=== PATIENT | male | born 1935 | race Caucasian/White ===

== ENCOUNTER 2017-06-09 18:13 | Emergency (ER) | payer MEDICARE ==
[2017-06-09 18:26] VITALS: BP 132/64
[2017-06-09] MEDS ORDERED: Tetan/Diph/Pertus SYR(Tdap)* 0.5 ML SYR(BOOSTRIX) use SYR IM ONE (19:06)
--- NOTE | 2017-06-09 20:20 | RAD ---
Indication: Left index finger injury. 3 views of the left third digit demonstrates soft tissue swelling at the proximal interphalangeal joint. Degenerative changes of the proximal interphalangeal joint is noted. No obvious defect is noted. IMPRESSION: Soft tissue swelling at the proximal interphalangeal joint of the third digit with degenerative changes. No evidence of traumatic defect is noted.
[2017-06-09] MEDS ORDERED: Cephalexin CAP* 500 MG ONE (20:36)
[2017-06-09] MEDS ORDERED: Cephalexin CAP* 500 MG PO ONE (20:38)
--- NOTE | 2017-06-10 08:57 | ED ---
Bj Vizcaino Tiffany, scribed for Oneida Sarmiento MD on 06/09/17 at 1948 . Laceration/Wound HPI - HPI Summary HPI Summary: The patient is an 82 year old male presenting to [facility] accompanied by complains of middle left finger laceration from [employer] at 1715 today. The patient rates the pain 2/10 in severity. Symptoms aggravated by nothing. Symptoms alleviated by nothing. States that finger was "mangled anyway before this" when asked about baseline. Takes 81 mg aspirin. Not up to date on tetanus. - History of Current Complaint Stated Complaint: FINGER LAC Time Seen by Provider: 06/09/17 19:05 Hx Obtained From: Patient Mechanism of Injury: Other - [employer], was cutting down a tree in his yard Onset/Duration: Sudden Onset, Lasting Hours - At 1715 today, Still Present Aggravating: Nothing Alleviating: Nothing Timing: Constant Onset Severity: Mild Current Severity: Mild Pain Intensity: 2 Pain Scale Used: 0-10 Numeric Associated Signs & Symptoms: Negative Related Hx: Anticoagulat Use - ASA 81mg daily, Dominant Hand (Right) - Allergy/Home Medications Allergies/Adverse Reactions: Allergies Allergy/AdvReac Type Severity Reaction Status Date / Time No Known Allergies Allergy Verified 06/09/17 18:23 PMH/Surg Hx/FS Hx/Imm Hx Previously Healthy: No Cardiovascular History: Reports: Hx Atrial Fibrillation, Hx Hypercholesterolemia , Hx Hypertension Sensory History: Denies: Hx Deafness EENT History: Denies: Hx Deafness Psychiatric History: Denies: Hx Panic Disorder - Surgical History Surgery Procedure, Year, and Place: NONE Infectious Disease History: No Infectious Disease History: Denies: Traveled Outside the [place] in Last 30 Days - Family History Known Family History: Positive: Cardiac Disease - Father, Other - Mother had cancer; Father had Alzheimer's - Social History Occupation: Retired Lives: With Family Alcohol Use: None Hx Substance Use: No Substance Use Type: Reports: None Hx Tobacco Use: No Smoking Status (MU): Never Smoked Tobacco Review of Systems Negative: Fever Cardiovascular: Negative Respiratory: Negative Gastrointestinal: Negative Musculoskeletal: Other - laceration left middle finger Positive: Other - Middle left finger laceration Neurological: Negative Psychological: Normal All Other Systems Reviewed And Are Negative: Yes Physical Exam - Summary Physical Exam Summary: Appearance: well-appearing, minimal pain distress, Well-nourished Head: Normal Head/Face inspection Eyes: Conjunctiva clear ENT: Normal inspection Neck: Supple, no nodes, no JVD. SKIN: 3-cm laceration on middle finger of left hand,dorsum from MCP joint to PIP joint. FROM. Sensation intact. Bleeding is controlled. Respiratory: Lungs clear, Normal breath sounds, no respiratory distress Cardio: RRR, No murmur, pulses normal, brisk capillary refill Abdomen: soft, nontender Bowel sounds: present Musculoskeletal: Strength Intact/ ROM intact. No calf tenderness. No edema. 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 Psychological: Normal Neuro: Alert, muscle tone normal, no focal deficit Triage Information Reviewed: Yes Vital Signs On Initial Exam: Initial Vitals Temp Pulse Resp BP Pulse Ox 97.4 F 70 14 132/64 97 06/09/17 18:23 06/09/17 18:23 06/09/17 18:23 06/09/17 18:23 06/09/17 18:23 Vital Signs Reviewed: Yes Procedures - Laceration/Wound Repair 1 Location: Other - Left middle finger, dorsum, between MCP and over PIP Description: Irregular Anesthesia: Digital - block, 1.0% - lido Length, Depth and Shape: 3-cm x 3-mm x 2-mm Betadine Prep?: No - chlorhexadine Irrigated w/ Saline (ccs): 500 - Normal saline Laceration/Wound Explored: clean, no foreign body removed, Other - No tendon visualized Closure: Single Layer Debridement: none Suture Type: Nylon - 4-0 Number of Sutures: 7 Layer Closure?: No Sterile Dressing Applied?: Yes Diagnostics - Vital Signs Vital Signs Temp Pulse Resp BP Pulse Ox 06/09/17 18:23 97.4 F 70 14 132/64 97 - Laboratory Lab Statement: Any lab studies that have been ordered have been reviewed, and results considered in the medical decision making process. - Radiology Finger Xray Radiology Interpretation Completed By: Radiologist - Soft tissue swelling at the proximal interphalangeal joint of the third digit with degenerative changes. No evidence of traumatic defect is noted. ED physician has reviewed this report. Laceration Repair Course/Dx - Course Course Of Treatment: High blood pressure noted. Patients medications reviewed this visit. Finger xray showed no evidence of fracture. Laceration repaired with 7 sutures, closed with single layer on left middle finger, dorsum, between MCP and over PIP. Administered tetnaus shot. Patient discharged with prescription for Keflex. Agreeable to discharge. - Differential Dx Differental Diagnoses: Foreign Body, Fracture, Joint Infection, Laceration - Clinical Impression Provider Diagnoses: Tetanus toxoid vaccination administered at current visit, Laceration of finger of left hand Discharge - Sign-Out/Discharge Documenting (check all that apply): Discharge/Admit/Transfer - home - Discharge Plan Condition: Stable Disposition: HOME Prescriptions: Cephalexin CAP* [Keflex CAP*] 500 mg PO QID #40 cap Patient Education Materials: Finger Laceration (ED) Referrals: Breonna Raymundo MD [Primary Care Provider] - 3 Days (06/12/17 for wound check ) Additional Instructions: Keep your sutures clean and dry. Leave the bandage in place until you have it checked on Monday06/12/17. After that change the dressing daily and use a small amount of triple antibiotic ointment. We have given you your first dose of keflex tonight and want you to take that four times a day for 10 days to prevent infection from getting to the bone. Have the sutures removed by your doctor or urgent care in 10-14 days. Return to the ER if you have any new or worsening symptoms. You were given a Tdap tetanus booster tonight which is good for 10 years. - Billing Disposition and Condition Condition: STABLE Disposition: HOME The documentation as recorded by the Bj gilliam Tiffany accurately reflects the service I personally performed and the decisions made by me, Oneida Sarmiento MD.
== END 2017-06-09 20:55 | disposition home or self-care (01) ==
LOC: ED 18:13
DX: S61.213A Laceration without foreign body of left middle finger without damage to nail, initial encounter (principal); W45.8XXA Other foreign body or object entering through skin, initial encounter; Y92.9 Unspecified place or not applicable; Z79.82 Long term (current) use of aspirin
CPT/HCPCS: 12002; 73140; 90715; 99282; A9270-GY

== ENCOUNTER 2018-07-25 13:29 | Day surgery (SDC) | payer MEDICARE ==
[~2018-07-25 13:29] MED LIST: Acetaminophen TAB* 325 MG PO PRN; Buffered Lidocaine 1% SYRIN* 1 ML/SYRINGE INTRADERM ONE; Cyclopentolate 1% OPTH.SOL* 2 ML BTL ONE; Ketorolac 0.5% OPHTH (NF) 0.5 % 5 ML BTL ONE; Lidocaine 1%* 5 ML VIAL ONE; Lidocaine 2% EPI 1:200000 MPF*10-20 ML VIAL ONE; Neomycin/Polymy/Dex OPTH.SUSP* MAXITROL 0.1% 5 ML ONE; Phenylephrine OPHTH SOL 2.5%* 2 ML ONE; Povidone Iodine 5% OPTH* 30 ML BTL ONE; Proparacaine 0.5% OPHTH.SOL* 15 ML BTL ONE; acetaZOLAMIDE TAB* 250 MG ONE
[2018-07-25] MEDS ORDERED: Midazolam* 1 MG/ML 2 ML VIAL (2 MG) ONE (15:27)
--- NOTE | 2018-07-25 16:41 | OP ---
DATE OF OPERATION: 07/25/18 [facility] DATE OF : 37 SURGEON: Alexandro Mary M.D. PREOPERATIVE DIAGNOSIS: Cataract, right eye. POSTOPERATIVE DIAGNOSIS: Cataract, right eye. OPERATIVE PROCEDURE: Extracapsular cataract extraction with intraocular lens implant, right eye. DESCRIPTION OF PROCEDURE: The patient was brought to the operating room after being given 1/2% Alcaine with epinephrine drops in the preoperative area. The eye was prepped and draped in the usual sterile fashion. Sterile drape and eyelid speculum were placed. Again, topical 1/2% Alcaine with epinephrine was given. A paracentesis incision was made at the 9 o'clock position with the No.75 blade. Clear cornea incision 2.2 x 2.2-mm was created at the 12 o'clock position starting at the anterior limbus using the 2.2-mm keratome. The anterior chamber was irrigated with 0.4 mL of 1% non-preservative intracameral lidocaine and filled with DisCoVisc. A capsulorrhexis was completed using the cystotome and the Utrata forceps. Hydrodissection was performed with balanced salt solution. The lens nucleus was removed with the Phacoemulsification handpiece without incident. Cortex was removed with the irrigation-aspiration handpiece. The capsular bag was re-inflated using DisCoVisc and an [id number] implant was inserted with the shooter. The irrigation-aspiration handpiece was used to remove all residual DisCoVisc. The eye was refilled with balanced salt solution and the wound checked and found to be watertight. Topical Maxitrol drops were given. [id number]/[facility] #: [id number] MTDD
[2018-07-25 16:47] VITALS: BP 121/73
== END 2018-07-25 16:40 | disposition home or self-care (01) ==
LOC: OREAST 13:29
PROVIDERS: ATTEND Specialist
DX: H25.811 Combined forms of age-related cataract, right eye (principal); H04.123 Dry eye syndrome of bilateral lacrimal glands; I48.91 Unspecified atrial fibrillation; I10 Essential (primary) hypertension; Z79.82 Long term (current) use of aspirin; Z79.01 Long term (current) use of anticoagulants
CPT/HCPCS: A9270-GY; J2250; V2632

== ENCOUNTER 2018-08-01 08:39 | Day surgery (SDC) | payer MEDICARE ==
[~2018-08-01 08:39] MED LIST changes: -Lidocaine 1%* 5 ML VIAL ONE; +Lidocaine 1%** 5 ML VIAL ONE
[2018-08-01] MEDS ORDERED: Midazolam* 1 MG/ML 2 ML VIAL (2 MG) ONE (10:52)
[2018-08-01 11:58] VITALS: BP 119/67
--- NOTE | 2018-08-01 12:02 | OP ---
OPERATIVE NOTE: DATE OF OPERATION: 08/01/18 - [facility] DATE OF : 37 SURGEON: Alexandro Mary M.D. PREOPERATIVE DIAGNOSIS: Cataract, left eye. POSTOPERATIVE DIAGNOSIS: Cataract, left eye. OPERATIVE PROCEDURE: Extracapsular cataract extraction with IOL, left eye. PROCEDURE: The patient was brought to the operating room after being given 1/2 % Alcaine with epinephrine drops in the preoperative area. The eye was prepped and draped in the usual sterile fashion. Sterile drape and eyelid speculum were placed. Again, topical 1/2% Alcaine with epinephrine was given. A paracentesis incision was made at the 3 o'clock position with the No.75 blade. Clear cornea incision 2.2 x 2.2-mm was created at the 6 o'clock position starting at the anterior limbus using the 2.2-mm keratome. The anterior chamber was irrigated with 0.4 mL of 1% non-preservative intracameral lidocaine and filled with DisCoVisc. A capsulorrhexis was completed using the cystotome and the Utrata forceps. Hydrodissection was performed with balanced salt solution. The lens nucleus was removed with the Phacoemulsification handpiece without incident. Cortex was removed with the irrigation-aspiration handpiece. The capsular bag was re-inflated using DisCoVisc and an [id number] implant was inserted with the shooter. The irrigation-aspiration handpiece was used to remove all residual DisCoVisc. The eye was refilled with balanced salt solution and the wound checked and found to be watertight. Topical Maxitrol drops were given. [id number]/[facility] #: [id number] [facility]
== END 2018-08-01 11:45 | disposition home or self-care (01) ==
LOC: OREAST 08:39
PROVIDERS: ATTEND Specialist
DX: H25.812 Combined forms of age-related cataract, left eye (principal); H04.123 Dry eye syndrome of bilateral lacrimal glands; I48.91 Unspecified atrial fibrillation; I10 Essential (primary) hypertension
CPT/HCPCS: A9270-GY; J2250; V2632

== ENCOUNTER 2024-03-05 11:02 | Observation (INO) ==
[2024-03-05 11:40] LABS: INR 1.14 (0.85-1.14)
[2024-03-05 11:41] LABS: Hematocrit 42.1 % (38-53); Hemoglobin 14.4 g/dL (13.2-16.3); Mean Corpuscular Hemoglobin 32.9 pg (27-33); Mean Corpuscular Hgb Conc 34.1 g/dL (31-36); Mean Corpuscular Volume 96.5 fL (80-97); Red Blood Count 4.36 10^6/uL (4.06-5.63); Red Cell Distribution Width 14.5 % (12-17); White Blood Count 5.3 10^3/uL (3.6-10.2)
[2024-03-05 12:01] LABS: ABS Lymphocytes 0.8 10^3/uL (1.0-4.8); ABS Monocytes 0.7 10^3/uL (0.0-1.1); ABS Neutrophils 3.7 10^3/uL (1.5-7.6); Eosinophil % 0.6 %; Lymphocyte % 16.1 %; Nucleated Red Blood Cells % 0.1 %/100WBC (0.0-0.8); Platelet Count 132 10^3/uL (150-450)
[2024-03-05 12:26] LABS: Albumin 4.4 g/dL (3.5-5.7); Albumin/Globulin Ratio 1.3 (1-3); Calcium 9.7 mg/dL (8.6-10.3); Creatinine, Serum 0.95 mg/dL (0.67-1.17); Globulin 3.5 g/dL (2-4); Potassium 3.8 mmol/L (3.5-5.0); Total Bilirubin 0.5 mg/dL (0.2-1.0); Total Protein 7.9 g/dL (6.4-8.9); eGFR CKD-EPI 77.5 (>60)
[2024-03-05 13:03] LABS: High Sensitivity Troponin 1 Hr 17 pg/mL (<20)
[2024-03-05] MEDS ORDERED: Sulfur Hexaflouride MICROSPHR 25 MG VIAL IV PRN (16:14)
[2024-03-05] MEDS ORDERED: hydrALAZINE 20 mg/ml 1 ML Vial IV IV SLOW PU PRN (16:27)
[2024-03-05 16:28] LABS: HDL Cholesterol 27.6 mg/dL
[2024-03-05 16:43] LABS: TSH Ultra Thyroid Stim Horm 2.35 mcIU/mL (0.34-5.60)
[2024-03-05] MEDS: Heparin 5000 UNITS/ML 1 mL VIAL SUBCUT ONE (21:07)
[2024-03-06 07:14] LABS: Hematocrit 39.6 % (38-53); Hemoglobin 13.7 g/dL (13.2-16.3); Mean Corpuscular Hemoglobin 33.2 pg (27-33); Mean Corpuscular Hgb Conc 34.6 g/dL (31-36); Mean Corpuscular Volume 95.9 fL (80-97); Red Blood Count 4.13 10^6/uL (4.06-5.63); Red Cell Distribution Width 14.3 % (12-17); White Blood Count 4.5 10^3/uL (3.6-10.2)
[2024-03-06 07:18] LABS: Calcium 9.1 mg/dL (8.6-10.3); Creatinine, Serum 0.79 mg/dL (0.67-1.17); Potassium 4.2 mmol/L (3.5-5.0)
[2024-03-06 08:13] LABS: ABS Lymphocytes 0.9 10^3/uL (1.0-4.8); ABS Monocytes 0.6 10^3/uL (0.0-1.1); Eosinophil % 0.9 %; Large Platelets Present; Lymphocyte % 20.4 %; Mean Platelet Volume 8.8 fL (7.5-11.2); Platelet Count 107 10^3/uL (150-450)
[2024-03-06] MEDS ORDERED: Aminophylline 25 MG/ML VIAL ONE (11:46)
[2024-03-06] MEDS ORDERED: Regadenoson 0.4 MG/5 ML SYRINGE ONE (11:46)
[2024-03-06 18:06] VITALS: BP 117/66
== END 2024-03-06 18:33 | disposition home or self-care (01) ==
LOC: EDHOLD 11:02 → ED 11:02 → MEDTELE 16:13
PROVIDERS: ADMIT Internal Medicine; ATTEND Internal Medicine

== ENCOUNTER 2024-03-18 07:27 | Observation (INO) ==
[2024-03-18] MEDS ORDERED: Heparin 1,000 UNIT/ML 10 ml (10,000 UNITS) CATHLAB/DIALYSIS ONE ×2 (09:52→11:27)
[2024-03-18] MEDS ORDERED: Lidocaine 1% VIAL 10 MG/ML 30 ML VIAL ONE (09:52)
[2024-03-18] MEDS ORDERED: VERAPAMIL 2.5 MG/ML 2 ML VIAL ** 5 mg/2 ml ONE (09:52)
[2024-03-18] MEDS ORDERED: nitroGLYCERIN DRIP 50,000 MCG/250 ML BTL ONE (09:53)
[2024-03-18] MEDS ORDERED: Iohexol 350 (CONTRAST) 200 ML MDV IV ONE (09:53)
[2024-03-18] MEDS ORDERED: Heparin 2 UNITS/ML 1000 mls 2,000 ML IV ONE (09:53)
[2024-03-18] MEDS ORDERED: fentaNYL 100 mcg/2 ml 50 MCG/ML VIAL ONE (10:21)
[2024-03-18] MEDS ORDERED: Midazolam 5 mg/5 ml VIAL 1 mg/ml 5 ml VIAL (5 mg) ONE (10:21)
[2024-03-18] MEDS ORDERED: niCARdipine 0.1MG/ML IVPREMIX 20 MG/200 ML BAG IV ONE (10:51)
[2024-03-18] MEDS ORDERED: Heparin 2 UNITS/ML 1000 mls 1,000 ML IV ONE (10:56)
[2024-03-18] MEDS ORDERED: Iohexol 350 (CONTRAST) 100 ML PAK IV ONE (11:36)
[2024-03-18] MEDS ORDERED: Ondansetron 4 mg VIAL 2 MG/ML 2 ml VIAL IV PRN (11:49)
[2024-03-18] MEDS: NS 0.9% 1000 ml BAG 1,000 ML IV SCH (12:38)
[2024-03-18] MEDS: Midazolam 10 mg/10 ml VIAL 1 mg/ml 10 ml VIAL (10 mg) IV SLOW PU ONE (12:47)
[2024-03-18] MEDS: fentaNYL 100 mcg/2 ml 50 MCG/ML VIAL IV SLOW PU ONE (12:47)
[2024-03-19 05:57] LABS: ABS Lymphocytes 0.9 10^3/uL (1.0-4.8); ABS Monocytes 0.6 10^3/uL (0.0-1.1); ABS Neutrophils 3.8 10^3/uL (1.5-7.6); ABS Nucleated RBC 0.01 10^3/ul; Eosinophil % 0.8 %; Hematocrit 38.5 % (38-53); Hemoglobin 13.5 g/dL (13.2-16.3); Lymphocyte % 16.3 %; Mean Corpuscular Hemoglobin 33.4 pg (27-33); Mean Corpuscular Volume 95.5 fL (80-97); Mean Platelet Volume 9.1 fL (7.5-11.2); Nucleated Red Blood Cells % 0.1 %/100WBC (0.0-0.8); Platelet Count 124 10^3/uL (150-450); Red Blood Count 4.03 10^6/uL (4.06-5.63); Red Cell Distribution Width 14.7 % (12-17); White Blood Count 5.4 10^3/uL (3.6-10.2)
[2024-03-19 06:15] LABS: Potassium 4.5 mmol/L (3.5-5.0)
[2024-03-19 06:16] LABS: Calcium 8.8 mg/dL (8.6-10.3); Creatinine, Serum 0.78 mg/dL (0.67-1.17); eGFR CKD-EPI 86.3 (>60)
[2024-03-19] MEDS: Aspirin EC 81 mg TAB.EC (enteric coated) PO SCH (08:29)
[2024-03-19] MEDS: Influenza Vaccine *TRI* 2024-25* 0.5 ML SYRINGE IM ONE (11:31)
[2024-03-19] MEDS: Pneumococcal 20-Valent Conj 0.5 ML SYR Vaccine IM ONE (11:55)
[2024-03-19] MEDS: COVID VAC 24-25 (12+) (Moderna) Syringe 0.5 mL IM ONE (12:14)
[2024-03-19 12:56] VITALS: BP 141/74
== END 2024-03-19 12:35 | disposition home or self-care (01) ==
LOC: ICU 07:27 → CHICATH 07:27
PROVIDERS: ADMIT Internal Medicine; ATTEND Internal Medicine